=== PATIENT | male | born 1980 | race Caucasian/White ===

== ENCOUNTER 2016-07-06 02:51 | Emergency (ER) | payer BC ==
[2016-07-06 03:11] VITALS: RESP 18; TEMP 97.8
[2016-07-06] MEDS ORDERED: ONDANSETRON 4 MG/2 ML VIAL IVP STA (03:39)
[2016-07-06] MEDS ORDERED: SODIUM CHLORIDE 0.9% 1,000 ML IV STA ×2 (03:39)
[2016-07-06] MEDS ORDERED: MORPHINE SULFATE 4 MG/ML SYRINGE IV STA (03:39)
[2016-07-06] MEDS ORDERED: RX INFO: IV CONTRAST WAS GIVEN 1 EACH MISC MISCELLANE PRN (03:39)
[2016-07-06 04:13] LABS: Basophils % (A) 1 %; CH 30.5; CHCM 34.2; Eosinophils # (A) 0.1 k/uL (0-0.7); Eosinophils % (A) 2 %; HDW 2.55; HGB 13.5 gm/dL (13.0-17.5); Luc # (Auto) 0.16; Luc % (Auto) 3; Lymphocytes # (A) 1.9 k/uL (1.0-4.8); Lymphocytes % (A) 29 %; MCH 30.1 pg (25.0-35.0); MCHC 33.6 g/dL (31.0-37.0); MCV 89.7 fL (80.0-100.0); Mean Platelet Volume 7.6; Monocytes # (A) 0.4 k/uL (0-1.0); Monocytes % (A) 5 %; Neutrophils % (A) 61 %; RBC 4.46 m/uL (4.30-5.90); RDW 13.5 % (11.5-15.5); WBC 6.6 k/uL (3.8-10.6); WBC (Perox) 6.75
[2016-07-06 04:14] LABS: Appearance,Urine Clear (Clear); Bilirubin,Urine Negative (Negative); Glucose,Urine (UA) Negative (Negative); Ketones,Urine Negative (Negative); Leukocyte Esterase,Urine Negative (Negative); Nitrite,Urine Negative (Negative); Protein,Urine Negative (Negative); Specific Gravity,Urine 1.016 (1.001-1.035); UA Billing (MACRO vs. MICRO) CHEM; Urobilinogen,Urine <2.0 mg/dL (<2.0)
--- NOTE | 2016-07-06 04:27 | ED ---
Abdominal Pain HPI - General Chief Complaint: Abdominal Pain Stated Complaint: Flank Pain/Abdominal Pain Time Seen by Provider: 07/06/16 03:25 Source: patient Mode of arrival: ambulatory Limitations: no limitations - History of Present Illness Initial Comments: Presented with the right flank pain pain started about 3 hours ago this is his first of her flank pain pain is in the right flank area it radiates down to the towards the groin but he didn't quite reach the groin now has no history of kidney stones he never had any surgery on his abdomen either he still has his gallbladder and appendix. Denies any fever no chills no nausea no vomiting pain comes in waves then it's there are it's severe 8-9/10) in between he is pain-free. Denies any frequency urgency dysuria no fever no chills no other symptoms - Related Data Home Medications Medication Instructions Recorded Confirmed Atenolol 100 mg PO DAILY 07/06/16 07/06/16 Losartan Potassium 100 mg PO DAILY 07/06/16 07/06/16 Methimazole 10 mg PO DAILY 07/06/16 07/06/16 Previous Rx's Medication Instructions Recorded HYDROmorphone [Dilaudid] 2 mg PO Q6H PRN #15 tab 07/06/16 Allergies Allergy/AdvReac Type Severity Reaction Status Date / Time erythromycin base Allergy Rash/Hives Verified 07/06/16 03:12 latex Allergy Rash/Hives Verified 07/06/16 03:12 Review of Systems ROS Statement: Those systems with pertinent positive or pertinent negative responses have been documented in the HPI. ROS Other: All systems not noted in ROS Statement are negative. Past Medical History Past Medical History: Hyperlipidemia, Hypertension History of Any Multi-Drug Resistant Organisms: None Reported Past Surgical History: No Surgical Hx Reported Past Psychological History: No Psychological Hx Reported Smoking Status: Never smoker Past Alcohol Use History: Occasional Past Drug Use History: None Reported General Exam - General Exam Comments Initial Comments: General: The patient is awake and alert, in order distress Skin: Skin is warm and dry and no rashes or lesions are noted. Eye: Pupils are equal, round and reactive to light, extra-ocular movements are intact; there is normal conjunctiva bilaterally. Ears, nose, mouth and throat: There are moist mucous membranes and no oral lesions. Neck: The neck is supple, there is no tenderness or JVD. Cardiovascular: There is a regular rate and rhythm. No murmur, rub or gallop is appreciated. Respiratory: To auscultation bilateral, no wheezing no rhonchi no distress respiratory ward noticed Gastrointestinal: Tender over the right flank area as well as slightly tender over the right lower quadrant area bowel sounds are positive no guarding no rebounds Back: There is no tenderness to palpation in the midline. There is no obvious deformity. Musculoskeletal: Normal ROM, no tenderness, There is no pedal edema. There is no calf tenderness or swelling. No cords were appreciated. Neurological: CN II-XII intact, Cranial nerves III through XII are intact. There are no obvious motor or sensory deficits. Coordination appears grossly intact. Speech is normal. Psychiatric: Cooperative, appropriate mood & affect, normal judgment. Limitations: no limitations Course Vital Signs 07/06/16 07/06/16 03:08 05:48 Temperature 97.8 F Pulse Rate 73 68 Respiratory 18 18 Rate Blood Pressure 148/74 137/73 O2 Sat by Pulse 98 98 Oximetry , Patient was reassessed at 614, labs were reviewed as well as urinalysis his vitals his CBC compressive metabolic panel are all negative CT of the abdomen shows some sludge in his gallbladder no signs of acute cholecystitis there was 0.2 mm stone seen in the dependent part of the bladder seems like it he just passed and patient's clinical picture, goes along with the Medical Decision Making - Lab Data Result diagrams: 07/06/16 03:55 07/06/16 03:55 Lab Results 07/06/16 07/06/16 07/06/16 Range/Units 03:50 03:55 03:55 WBC 6.6 (3.8-10.6) k/uL RBC 4.46 (4.30-5.90) m/uL Hgb 13.5 (13.0-17.5) gm/dL Hct 40.0 (39.0-53.0) % MCV 89.7 (80.0-100.0) fL MCH 30.1 (25.0-35.0) pg MCHC 33.6 (31.0-37.0) g/dL RDW 13.5 (11.5-15.5) % Plt Count 200 (150-450) k/uL Neutrophils % 61 % Lymphocytes % 29 % Monocytes % 5 % Eosinophils % 2 % Basophils % 1 % Neutrophils # 4.0 (1.3-7.7) k/uL Lymphocytes # 1.9 (1.0-4.8) k/uL Monocytes # 0.4 (0-1.0) k/uL Eosinophils # 0.1 (0-0.7) k/uL Basophils # 0.0 (0-0.2) k/uL Sodium 141 (137-145) mmol/L Potassium 3.8 (3.5-5.1) mmol/L Chloride 105 (98-107) mmol/L Carbon Dioxide 24 (22-30) mmol/L Anion Gap 12 mmol/L BUN 11 (9-20) mg/dL Creatinine 0.90 (0.66-1.25) mg/dL Est GFR (MDRD) Af Amer >60 (>60 ml/min/1.73 sqM) Est GFR (MDRD) Non-Af >60 (>60 ml/min/1.73 sqM) Glucose 125 H (74-99) mg/dL Calcium 9.0 (8.4-10.2) mg/dL Total Bilirubin 0.6 (0.2-1.3) mg/dL AST 24 (17-59) U/L ALT 38 (21-72) U/L Alkaline Phosphatase 95 (38-126) U/L C-Reactive Protein <5.0 (<10.0) mg/L Total Protein 7.1 (6.3-8.2) g/dL Albumin 4.2 (3.5-5.0) g/dL Amylase 55 (30-110) U/L Lipase 165 (23-300) U/L Urine Color Yellow Urine Appearance Clear (Clear) Urine pH 5.0 (5.0-8.0) Ur Specific [place] 1.016 (1.001-1.035) Urine Protein Negative (Negative) Urine Glucose (UA) Negative (Negative) Urine Ketones Negative (Negative) Urine Blood Negative (Negative) Urine Nitrate Negative (Negative) Urine Bilirubin Negative (Negative) Urine Urobilinogen <2.0 (<2.0) mg/dL Ur Leukocyte Esterase Negative (Negative) Disposition Clinical Impression: Nephrolithiasis Disposition: HOME SELF-CARE Condition: Good Instructions: Kidney Stones (ED) Prescriptions: HYDROmorphone [Dilaudid] 2 mg PO Q6H PRN #15 tab PRN Reason: Pain Referrals: Arash Flores MD [Primary Care Provider] - 1-2 days Isaac Dowell MD [STAFF PHYSICIAN] - 1-2 days
[2016-07-06 04:46] LABS: ALT 38 U/L (21-72); AST 24 U/L (17-59); Alkaline Phosphatase 95 U/L (38-126); Amylase 55 U/L (30-110); Anion Gap 12 mmol/L; Blood Urea Nitrogen 11 mg/dL (9-20); C Reactive Protein <5.0 mg/L (<10.0); Carbon Dioxide 24 mmol/L (22-30); Chloride 105 mmol/L (98-107); Glucose 125 mg/dL (74-99); Non-African American GFR(MDRD) >60 (>60 ml/min/1.73 sqM); Potassium 3.8 mmol/L (3.5-5.1); Sodium 141 mmol/L (137-145); Total Bilirubin 0.6 mg/dL (0.2-1.3); Total Protein 7.1 g/dL (6.3-8.2)
[2016-07-06 05:49] VITALS: BP 137/73; PULSE 68
--- NOTE | 2016-07-06 05:55 | CT ---
EXAM: CT Abdomen and Pelvis With Intravenous Contrast. CLINICAL HISTORY: Reason: abdominal pain TECHNIQUE: Axial computed tomography images of the abdomen and pelvis with intravenous contrast. CTDI is 21.6 mGy and DLP is 892 mGy-cm COMPARISON: No relevant prior studies available. FINDINGS: Lower thorax: No acute findings. ABDOMEN: Liver: Unremarkable. Gallbladder and bile ducts: Probable stones or sludge within the gallbladder. No CT evidence of acute cholecystitis. Pancreas: Unremarkable. Spleen: Unremarkable. Adrenals: Unremarkable. Kidneys and ureters: There is a 2 mm calculus seen within the dependent urinary bladder with minimal right-sided hydroureteronephrosis. Findings likely represent a recently passed ureteral calculus. There are additional nonobstructing calculi seen within both kidneys. Stomach and bowel: Unremarkable. Appendix: The appendix is unremarkable. PELVIS: Bladder: Unremarkable. Reproductive: Unremarkable as visualized. ABDOMEN and PELVIS: Intraperitoneal space: Unremarkable. Bones/joints: No acute fracture. No dislocation. Soft tissues: Unremarkable. Vasculature: Unremarkable. Lymph nodes: Unremarkable. IMPRESSION: 1. Probable stones or sludge within the gallbladder. No CT evidence of acute cholecystitis. 2. There is a 2 mm calculus seen within the dependent urinary bladder with minimal right-sided hydroureteronephrosis. Findings likely represent a recently passed ureteral calculus. There are additional nonobstructing calculi seen within both kidneys.
== END 2016-07-06 06:23 | disposition home or self-care (01) ==
LOC: EC 02:51
DX: N20.0 Calculus of kidney (principal); I10 Essential (primary) hypertension; Z79.899 Other long term (current) drug therapy; Z88.1 Allergy status to other antibiotic agents; Z91.040 Latex allergy status
CPT/HCPCS: 36415; 80053; 82150; 83690; 85025; 86140; 81003; 74177; 99284; 96374; 96375; 96361; J2270; J2405; Q9967

== ENCOUNTER → 2016-12-22 | Outpatient (CLI) | payer BC ==
--- NOTE | 2016-12-22 17:47 | US ---
EXAMINATION TYPE: US thyroid st tissue head/neck DATE OF EXAM: 12/22/2016 COMPARISON: 09/25/2015 CLINICAL HISTORY: 36-year-old male E04.1 Thyroid nodule. F/U Nodules TECHNIQUE: Multiple sonographic images of the thyroid gland are obtained. FINDINGS: GLAND SIZE: Right Lobe: 6.5 x 2.2 x 3.1 cm Overall Parenchyma: Slightly heterogeneous Left Lobe: 6.3 x 1.8 x 2.5 cm Overall Parenchyma: Slightly heterogeneous Isthmus Thickness: 0.5 cm NODULES RIGHT: # of nodules measured on right: 2 1. 0.6 X 0.4 x 0.6 cm hypoechoic solid nodule at the mid pole with well-defined margins; This nodul e is wider than tall and shows intranodular vascularity. Prior size: 0.5 x 0.4 x 0.5 cm 2. 0.5 X 0.4 x 0.5 cm hypoechoic mixed nodule at the mid pole with well-defined margins; This nodule is wider than tall and shows no intranodular vascularity. Prior size: Not visualized on prior LEFT: # of nodules measured on left: 1 1. 1.5 X 1.3 x 1.4 cm isoechoic solid nodule at the lower pole with well-defined margins;. This no dule is wider than tall and shows intranodular vascularity. Prior size: 1.6 x 1.2 x 1.4 cm Bilateral neck scanned, no evidence of lymphadenopathy. BOOM TENDER NOTES: Stable nodules with new small, sub-centimeter nodule on right IMPRESSION: 1. Thyromegaly. 2. A couple subcentimeter nodules on the right, a 5 mm nodule being new in the midpole. 3. Overall stable solitary 1.5 cm nodule on the left.
== END | disposition home or self-care (01) ==
LOC: RADUSWWP 16:14
PROVIDERS: ATTEND Family Medicine
DX: E04.2 Nontoxic multinodular goiter (principal)
CPT/HCPCS: 76536

== ENCOUNTER 2018-04-26 18:10 | Observation (INO) | payer BC ==
[2018-04-26 18:57] LABS: Basophils % (A) 0 %; Eosinophils # (A) 0.1 k/uL (0-0.7); Eosinophils % (A) 1 %; HCT 43.1 % (39.0-53.0); HGB 13.5 gm/dL (13.0-17.5); Lymphocytes # (A) 2.4 k/uL (1.0-4.8); Lymphocytes % (A) 27 %; MCH 28.1 pg (25.0-35.0); MCHC 31.3 g/dL (31.0-37.0); MCV 89.8 fL (80.0-100.0); Mean Platelet Volume 6.9; Monocytes # (A) 0.4 k/uL (0-1.0); Monocytes % (A) 5 %; Neutrophils # (A) 5.5 k/uL (1.3-7.7); Neutrophils % (A) 63 %; Platelet Count 258 k/uL (150-450); RDW 13.5 % (11.5-15.5); WBC 8.8 k/uL (3.8-10.6)
[2018-04-26 19:04] LABS: ALT 37 U/L (21-72); AST 25 U/L (17-59); Alkaline Phosphatase 104 U/L (38-126); Anion Gap 11 mmol/L; Blood Urea Nitrogen 11 mg/dL (9-20); Calcium 9.9 mg/dL (8.4-10.2); Carbon Dioxide 26 mmol/L (22-30); Chloride 104 mmol/L (98-107); Creatine Kinase 60 U/L (55-170); Glucose 103 mg/dL (74-99); Magnesium 2.1 mg/dL (1.6-2.3); Potassium 4.3 mmol/L (3.5-5.1); Sodium 141 mmol/L (137-145); Total Bilirubin 0.9 mg/dL (0.2-1.3); Total Protein 8.4 g/dL (6.3-8.2)
[2018-04-26 19:05] LABS: INR 0.9 (<1.2); Partial Thromboplastin Time 26.9 sec (22.0-30.0)
[2018-04-26 19:17] LABS: Creatine Kinase MB 0.3 ng/mL (0.0-2.4); Troponin I <0.012 ng/mL (0.000-0.034)
[2018-04-26] MEDS ORDERED: ASPIRIN 81 MG PO STA (20:13)
--- NOTE | 2018-04-26 20:15 | ED ---
General Adult HPI - General Chief complaint: Chest Pain Stated complaint: chest pain Time Seen by Provider: 04/26/18 19:44 Source: patient, RN notes reviewed Mode of arrival: ambulatory Limitations: no limitations - History of Present Illness Initial comments: Patient is a pleasant 37-year-old male presenting to the emergency Department with chest discomfort. Onset was last night. Discomfort is mild. Discomfort has been waxing and waning. Discomfort feels like tightness with some rotation towards left arm. There may be some minimal associated dyspnea. No nausea. No diaphoresis. Blood pressure has been monitored by his primary care physician over the past few weeks with numbers as high as 150/90. Discomfort is near resolved at this point. - Related Data Home Medications Medication Instructions Recorded Confirmed Atenolol 100 mg PO DAILY 07/06/16 04/26/18 Losartan Potassium 100 mg PO DAILY 07/06/16 04/26/18 Methimazole 10 mg PO DAILY 07/06/16 04/26/18 Artificial Tears-Hypromellose 1 drop BOTH EYES DAILY PRN 04/26/18 04/26/18 [Artificial Tear Drops] Aspirin [[place] Aspirin EC] 81 mg PO DAILY 04/26/18 04/26/18 Pedi Multivit No.25/Folic Acid 300 mcg PO DAILY 04/26/18 04/26/18 [Flintstones Multivit Chew Tab] amLODIPine BESYLATE [Norvasc] 2.5 mg PO DAILY 04/26/18 04/26/18 Allergies Allergy/AdvReac Type Severity Reaction Status Date / Time erythromycin base Allergy Rash/Hives Verified 04/26/18 20:08 hydrochlorothiazide Allergy Unknown Verified 04/26/18 20:08 latex Allergy Rash/Hives Verified 04/26/18 20:08 Review of Systems ROS Statement: Those systems with pertinent positive or pertinent negative responses have been documented in the HPI. ROS Other: All systems not noted in ROS Statement are negative. Constitutional: Denies: fever Eyes: Denies: eye pain ENT: Denies: ear pain Respiratory: Reports: as per HPI. Denies: cough Cardiovascular: Reports: as per HPI, chest pain Endocrine: Denies: fatigue Gastrointestinal: Denies: abdominal pain Genitourinary: Denies: dysuria Musculoskeletal: Denies: back pain Skin: Denies: rash Neurological: Denies: weakness Past Medical History Past Medical History: Hyperlipidemia, Hypertension History of Any Multi-Drug Resistant Organisms: None Reported Past Surgical History: No Surgical Hx Reported Past Psychological History: No Psychological Hx Reported Smoking Status: Never smoker Past Alcohol Use History: Occasional Past Drug Use History: None Reported General Exam Limitations: no limitations General appearance: alert, in no apparent distress Head exam: Present: atraumatic Eye exam: Present: normal appearance, PERRL ENT exam: Present: normal oropharynx Neck exam: Present: normal inspection Respiratory exam: Present: normal lung sounds bilaterally. Absent: chest wall tenderness Cardiovascular Exam: Present: regular rate, normal rhythm Expanded Peripheral pulses: 2+: Radial (R), Radial (L), Posterior Tibialis (R), Posterior Tibialis (L) GI/Abdominal exam: Present: soft. Absent: tenderness Extremities exam: Present: normal inspection. Absent: pedal edema, calf tenderness Neurological exam: Present: alert Psychiatric exam: Present: normal affect, normal mood Skin exam: Present: normal color Course Vital Signs 04/26/18 18:31 Temperature 98.2 F Pulse Rate 67 Respiratory 16 Rate Blood Pressure 154/86 O2 Sat by Pulse 99 Oximetry EKG Findings - EKG Comments: EKG Findings:: Normal sinus rhythm 68. OR 138. QRS 86. QT 402. QTC 427. Normal axis. Normal QRS. No acute ST change. Medical Decision Making - Medical Decision Making Patient reevaluated and resting comfortably in bed. Patient and family updated on results and plan. Case was discussed in detail with Dr. Man, covering for Dr. Flores, who will admit. - Lab Data Result diagrams: 04/26/18 18:26 04/26/18 18:26 Lab Results 04/26/18 04/26/18 04/26/18 Range/Units 18:26 18:26 18:26 WBC 8.8 (3.8-10.6) k/uL RBC 4.80 (4.30-5.90) m/uL Hgb 13.5 (13.0-17.5) gm/dL Hct 43.1 (39.0-53.0) % MCV 89.8 (80.0-100.0) fL MCH 28.1 (25.0-35.0) pg MCHC 31.3 (31.0-37.0) g/dL RDW 13.5 (11.5-15.5) % Plt Count 258 (150-450) k/uL Neutrophils % 63 % Lymphocytes % 27 % Monocytes % 5 % Eosinophils % 1 % Basophils % 0 % Neutrophils # 5.5 (1.3-7.7) k/uL Lymphocytes # 2.4 (1.0-4.8) k/uL Monocytes # 0.4 (0-1.0) k/uL Eosinophils # 0.1 (0-0.7) k/uL Basophils # 0.0 (0-0.2) k/uL PT (9.0-12.0) sec INR (<1.2) APTT (22.0-30.0) sec Sodium 141 (137-145) mmol/L Potassium 4.3 (3.5-5.1) mmol/L Chloride 104 (98-107) mmol/L Carbon Dioxide 26 (22-30) mmol/L Anion Gap 11 mmol/L BUN 11 (9-20) mg/dL Creatinine 0.89 (0.66-1.25) mg/dL Est GFR (CKD-EPI)AfAm >90 (>60 ml/min/1.73 sqM) Est GFR (CKD-EPI)NonAf >90 (>60 ml/min/1.73 sqM) Glucose 103 H (74-99) mg/dL Calcium 9.9 (8.4-10.2) mg/dL Magnesium 2.1 (1.6-2.3) mg/dL Total Bilirubin 0.9 (0.2-1.3) mg/dL AST 25 (17-59) U/L ALT 37 (21-72) U/L Alkaline Phosphatase 104 (38-126) U/L Total Creatine Kinase 60 (55-170) U/L CK-MB (CK-2) 0.3 (0.0-2.4) ng/mL CK-MB (CK-2) Rel Index 0.5 Troponin I <0.012 (0.000-0.034) ng/mL Total Protein 8.4 H (6.3-8.2) g/dL Albumin 5.0 (3.5-5.0) g/dL 04/26/18 Range/Units 18:26 WBC (3.8-10.6) k/uL RBC (4.30-5.90) m/uL Hgb (13.0-17.5) gm/dL Hct (39.0-53.0) % MCV (80.0-100.0) fL MCH (25.0-35.0) pg MCHC (31.0-37.0) g/dL RDW (11.5-15.5) % Plt Count (150-450) k/uL Neutrophils % % Lymphocytes % % Monocytes % % Eosinophils % % Basophils % % Neutrophils # (1.3-7.7) k/uL Lymphocytes # (1.0-4.8) k/uL Monocytes # (0-1.0) k/uL Eosinophils # (0-0.7) k/uL Basophils # (0-0.2) k/uL PT 10.0 (9.0-12.0) sec INR 0.9 (<1.2) APTT 26.9 (22.0-30.0) sec Sodium (137-145) mmol/L Potassium (3.5-5.1) mmol/L Chloride (98-107) mmol/L Carbon Dioxide (22-30) mmol/L Anion Gap mmol/L BUN (9-20) mg/dL Creatinine (0.66-1.25) mg/dL Est GFR (CKD-EPI)AfAm (>60 ml/min/1.73 sqM) Est GFR (CKD-EPI)NonAf (>60 ml/min/1.73 sqM) Glucose (74-99) mg/dL Calcium (8.4-10.2) mg/dL Magnesium (1.6-2.3) mg/dL Total Bilirubin (0.2-1.3) mg/dL AST (17-59) U/L ALT (21-72) U/L Alkaline Phosphatase (38-126) U/L Total Creatine Kinase (55-170) U/L CK-MB (CK-2) (0.0-2.4) ng/mL CK-MB (CK-2) Rel Index Troponin I (0.000-0.034) ng/mL Total Protein (6.3-8.2) g/dL Albumin (3.5-5.0) g/dL - Radiology Data Interpreted by me: Chest x-ray shows no acute process Disposition Clinical Impression: Chest pain Disposition: ADMITTED IP TO THIS [facility] Is patient prescribed a controlled substance at d/c from ED?: No Referrals: Arash Flores MD [Primary Care Provider] - 1-2 days Decision Time: 20:57
[2018-04-26] MEDS ORDERED: NITROGLYCERIN SL TABS 0.4 MG TAB SUBLINGUAL PRN (20:57)
--- NOTE | 2018-04-26 20:57 | XR ---
EXAMINATION TYPE: XR chest 2V DATE OF EXAM: 04/26/2018 COMPARISON: 01/31/2013 HISTORY: Chest pain TECHNIQUE: Frontal and lateral views of the chest are obtained. FINDINGS: Heart and mediastinum are normal. Lungs are clear. Diaphragm is normal. Bony thorax appear s normal. Pulmonary vascularity is normal. IMPRESSION: Normal chest. No change.
[2018-04-26 22:15] VITALS: BMI 29.0
[2018-04-26] MEDS: NITROGLYCERIN OINT 1 INCH/GM PACKET TOPICAL SCH (22:37)
[2018-04-27 00:51] LABS: Creatine Kinase 53 U/L (55-170)
[2018-04-27 01:05] LABS: Creatine Kinase MB <0.2 ng/mL (0.0-2.4); Troponin I <0.012 ng/mL (0.000-0.034)
[2018-04-27] MEDS: NITROGLYCERIN OINT 1 INCH/GM PACKET TOPICAL SCH (05:10)
[2018-04-27 06:42] LABS: Cholesterol 168 mg/dL (<200); HDL Cholesterol 38 mg/dL (40-60); LDL Cholesterol,Calculated 105 mg/dL (0-99); Triglycerides 124 mg/dL (<150)
[2018-04-27 07:13] LABS: Creatine Kinase 45 U/L (55-170)
[2018-04-27 07:25] LABS: Creatine Kinase MB <0.2 ng/mL (0.0-2.4); Troponin I <0.012 ng/mL (0.000-0.034)
[2018-04-27 08:36] VITALS: RESP 18
[2018-04-27] MEDS ORDERED: ASPIRIN 325 MG TAB PO SCH (09:00)
--- NOTE | 2018-04-27 09:13 | US ---
EXAMINATION TYPE: US gallbladder DATE OF EXAM: 04/27/2018 COMPARISON: CT from 2017 CLINICAL HISTORY: right upper back pain. EXAM MEASUREMENTS: Liver Length: 13.3 cm Gallbladder Wall: 0.2 cm CBD: 0.4 cm Right Kidney: 10.8 x 4.3 x 4.7 cm Pancreas: visualized portions wnl Liver: wnl Gallbladder: No stones seen Evidence for sonographic Arana's sign: No CBD: wnl Right Kidney: No hydronephrosis or masses seen IMPRESSION: No distinct abnormality seen.
--- NOTE | 2018-04-27 10:39 | P.CRDCN ---
History of Present Illness History of present illness: This is a pleasant 37-year-old male past medical history significant for hypertension, dyslipidemia, hypothroidism and kidney stones in the past. He denies history of coronary artery disease. We have been asked to see him in consultation for chest pain. He states he has been following closely with his primary care physician recently regarding his blood pressures. He was recently started on amlodipine 2.5 mg daily last week due to uncontrolled blood pressures on losartan 100 mg daily and atenolol 25 mg daily. Since starting that third medication he has noticed his blood pressure running lower in the 105 -110 systolic range. Yesterday he started feeling a pain in the right scapular region and in the mid-sternal region as well. The pain was intermittent in nature with no specific aggravating or alleviating factors. He denies any specific shortness of breath but felt like he couldn't take in a deep breath. He denies dizziness, palpitations or nausea/vomiting. He checked his blood pressure at home and it was elevated. He states he checked it 3 separate times and each time the pressure went up, highest being 200 systolic. Upon arrival to ED blood pressure was 154/86. He denies any further symptoms of chest discomfort since arrival to the hospital. EKG reveals sinus mechanism with no acute ST or T wave abnormalities noted. Chest x-ray is negative for an acute cardiopulmonary process. Laboratory data reviewed, hemoglobin 15.5, platelets 258, WBC 8.8, sodium 141, potassium 4.3, magnesium 2.1, creatinine 0.89, cardiac enzymes negative 3, LDL 105 and HDL 38. He states he underwent stress testing approximately 8 years ago which was unremarkable per the patient. At the time of my exam: CONSTITUTIONAL: Denies fever. Denies chills. EYES: Denies blurred vision. Denies vision changes. Denies eye pain. EARS, NOSE, MOUTH & THROAT: Denies headache. Denies sore throat. Denies ear pain. CARDIOVASCULAR: Denies chest pain. Denies shortness of breath. Denies orthopnea. Denies PND. Denies palpitations. RESPIRATORY: Denies cough. GASTROINTESTINAL: Denies abdominal pain. Denies diarrhea. Denies constipation. Denies nausea. Denies vomiting. MUSCULOSKELETAL: Denies myalgias. INTEGUMENTARY: Denies pruitis. Denies rash. NEUROLOGIC: Denies numbness. Denies tingling. Denies weakness. PSYCHIATRIC: Denies anxiety. Denies depression. ENDOCRINE: Denies fatigue. Denies weight change. Denies polydipsia. Denies polyurina. GENITOURINARY: Denies burning, hematuria or urgency with micturation. HEMATOLOGIC: Denies history of anemia. Denies bleeding. Blood pressure 119/67 heart rate 70 afebrile maintaining oxygen saturation on room air GENERAL: This is a 37-year-old male in no apparent distress at the time of my examination. HEENT: Head is atraumatic, normocephalic. Pupils are equal, round. Sclerae anicteric. Conjunctivae are clear. Mucous membranes of the mouth are moist. Neck is supple. There is no jugular venous distention. No carotid bruit is heard. LUNGS: Clear to auscultation no wheezes, rales or rhonchi. No chest wall tenderness is noted on palpation or with deep breathing. HEART: Regular rate and rhythm without murmurs, rubs or gallops. S1 and S2 heard. ABDOMEN: Soft, nontender. Bowel sounds are heard. No organomegaly noted. EXTREMITIES: No evidence of peripheral edema and no calf tenderness noted. VASCULAR: Radial and dorsalis pedis pulses palpated, no evidence of clubbing. NEUROLOGIC: Patient is awake, alert and oriented x3. ASSESSMENT Chest pain, atypical Hypertension Dyslipidemia Hypothyroidism PLAN Change atenolol to carvedilol 25 mg daily. Resume amlodipine and losartan at home doses. Obtain 2-D echocardiogram and Doppler study to assess cardiac structure and function. Perform stress echocardiogram to assess for stress induced cardiac ischemia. If stress test is normal he is stable from a cardiac perspective. Follow up with Dr. Askew in 2-3 weeks. Nurse Practitioner note has been reviewed, I agree with a documented findings and plan of care. Patient was seen and examined. Past Medical History Past Medical History: Hyperlipidemia, Hypertension, Thyroid Disorder Additional Past Medical History / Comment(s): hyperthyroid, kidney stones History of Any Multi-Drug Resistant Organisms: None Reported Past Surgical History: No Surgical Hx Reported Past Psychological History: No Psychological Hx Reported Smoking Status: Never smoker Past Alcohol Use History: Occasional Past Drug Use History: None Reported - Past Family History Father Family Medical History: Hypertension Mother Family Medical History: Hypertension Medications and Allergies Home Medications Medication Instructions Recorded Confirmed Type Atenolol 100 mg PO DAILY 07/06/16 04/26/18 History Losartan Potassium 100 mg PO DAILY 07/06/16 04/26/18 History Methimazole 10 mg PO DAILY 07/06/16 04/26/18 History Artificial Tears-Hypromellose 1 drop BOTH EYES DAILY PRN 04/26/18 04/26/18 History [Artificial Tear Drops] Aspirin [[place] Aspirin EC] 81 mg PO DAILY 04/26/18 04/26/18 History Pedi Multivit No.25/Folic Acid 300 mcg PO DAILY 04/26/18 04/26/18 History [[place] Multivit Chew Tab] amLODIPine BESYLATE [Norvasc] 2.5 mg PO DAILY 04/26/18 04/26/18 History Allergies Allergy/AdvReac Type Severity Reaction Status Date / Time erythromycin base Allergy Rash/Hives Verified 04/26/18 20:08 hydrochlorothiazide Allergy Unknown Verified 04/26/18 20:08 latex Allergy Rash/Hives Verified 04/26/18 20:08 Physical Exam Vitals: Vital Signs Temp Pulse Pulse Resp BP BP Pulse Ox 04/27/18 08:00 97.7 F 70 18 119/67 98 04/27/18 03:39 16 04/27/18 03:37 98.3 F 76 16 115/65 99 04/27/18 00:00 16 04/26/18 23:29 98.2 F 56 L 16 130/75 97 04/26/18 22:00 16 04/26/18 21:49 97.9 F 63 16 128/79 97 04/26/18 21:30 70 16 133/81 96 04/26/18 20:58 68 19 132/77 96 04/26/18 18:31 98.2 F 67 16 154/86 99 Intake and Output 04/26/18 04/27/18 04/27/18 22:59 06:59 14:59 Other: Voiding Method Toilet Toilet Toilet # Voids 2 Weight 89.358 kg Results 04/26/18 18:26 04/26/18 18:26 Cardiac Enzymes 04/26/18 04/26/18 04/27/18 Range/Units 18:26 18:26 00:10 AST 25 (17-59) U/L CK-MB (CK-2) 0.3 <0.2 (0.0-2.4) ng/mL Troponin I <0.012 <0.012 (0.000-0.034) ng/mL 04/27/18 Range/Units 06:09 AST (17-59) U/L CK-MB (CK-2) <0.2 (0.0-2.4) ng/mL Troponin I <0.012 (0.000-0.034) ng/mL Coagulation 04/26/18 Range/Units 18:26 PT 10.0 (9.0-12.0) sec APTT 26.9 (22.0-30.0) sec Lipids 04/27/18 Range/Units 06:09 Triglycerides 124 (<150) mg/dL Cholesterol 168 (<200) mg/dL HDL Cholesterol 38 L (40-60) mg/dL CBC 04/26/18 Range/Units 18:26 WBC 8.8 (3.8-10.6) k/uL RBC 4.80 (4.30-5.90) m/uL Hgb 13.5 (13.0-17.5) gm/dL Hct 43.1 (39.0-53.0) % Plt Count 258 (150-450) k/uL Comprehensive Metabolic Panel 04/26/18 Range/Units 18:26 Sodium 141 (137-145) mmol/L Potassium 4.3 (3.5-5.1) mmol/L Chloride 104 (98-107) mmol/L Carbon Dioxide 26 (22-30) mmol/L BUN 11 (9-20) mg/dL Creatinine 0.89 (0.66-1.25) mg/dL Glucose 103 H (74-99) mg/dL Calcium 9.9 (8.4-10.2) mg/dL AST 25 (17-59) U/L ALT 37 (21-72) U/L Alkaline Phosphatase 104 (38-126) U/L Total Protein 8.4 H (6.3-8.2) g/dL Albumin 5.0 (3.5-5.0) g/dL Current Medications Generic Name Dose Route Start Last Admin Trade Name Freq PRN Reason Stop Dose Admin Amlodipine Besylate 2.5 mg 04/28/18 09:00 Norvasc PO DAILY [facility] Aspirin 81 mg 04/28/18 09:00 Aspirin PO DAILY [facility] Carvedilol 25 mg 04/28/18 07:30 Coreg PO AC-BRKFST [facility]TI[facility] Losartan Potassium 100 mg 04/28/18 09:00 Cozaar PO DAILY [facility] Nitroglycerin 0.4 mg 04/26/18 20:57 Nitrostat SUBLINGUAL Q5M PRN Chest Pain Intake and Output 04/26/18 04/27/18 04/27/18 22:59 06:59 14:59 Other: Voiding Method Toilet Toilet Toilet # Voids 2 Weight 89.358 kg 04/26/18 18:26 04/26/18 18:26
[2018-04-27] MEDS ORDERED: CARVEDILOL 12.5 MG TAB PO STA (12:11)
[2018-04-27] MEDS ORDERED: LOSARTAN 50 MG TAB PO STA (12:11)
[2018-04-27] MEDS ORDERED: amLODIPine 2.5 MG TAB PO STA (12:11)
--- NOTE | 2018-04-27 13:23 | ECHOF ---
Referral Reason:cp MEASUREMENTS -------- HEIGHT: 175.3 cm WEIGHT: 89.4 kg BP: 119/67 RVIDd: 3.5 cm (< 3.3) IVSd: 1.0 cm (0.6 - 1.1) LVIDd: 4.6 cm (3.9 - 5.3) LVPWd: 1.1 cm (0.6 - 1.1) IVSs: 1.6 cm LVIDs: 3.1 cm LVPWs: 1.7 cm LA Diam: 3.5 cm (2.7 - 3.8) LAESV Index (A-L): 23.78 ml/m Ao Diam: 3.2 cm (2.0 - 3.7) AV Cusp: 2.5 cm (1.5 - 2.6) MV EXCURSION: 21.562 mm (> 18.000) MV EF SLOPE: 120 mm/s (70 - 150) EPSS: 0.2 cm MV E Rakesh: 1.21 m/s MV DecT: 177 ms MV A Rakesh: 0.64 m/s MV E/A Ratio: 1.87 RAP: 5.00 mmHg RVSP: 19.52 mmHg FINDINGS -------- Sinus rhythm. This was a technically good study. The left ventricular size is normal. There is borderline concentric left ventricular hypertrophy. Overall left ventricular systolic function is normal with, an EF between 60 - 65 %. The right ventricle is mildly enlarged. Normal LA size by volume 22+/-6 ml/m2. The right atrium is normal in size. The aortic valve is trileaflet and appears structurally normal. There is trace to mild mitral regurgitation. Mild tricuspid regurgitation present. Right ventricular systolic pressure is normal at < 35 mmHg. Trace/mild (physiologic) pulmonic regurgitation. The aortic root size is normal. Normal inferior vena cava with normal inspiratory collapse consistent with estimated right atrial pre ssure of 5 mmHg. There is no pericardial effusion. CONCLUSIONS -------- 1. Sinus rhythm. 2. This was a technically good study. 3. The left ventricular size is normal. 4. There is borderline concentric left ventricular hypertrophy. 5. Overall left ventricular systolic function is normal with, an EF between 60 - 65 %. 6. The right ventricle is mildly enlarged. 7. Normal LA size by volume 22+/-6 ml/m2. 8. The right atrium is normal in size. 9. The aortic valve is trileaflet and appears structurally normal. 10. There is trace to mild mitral regurgitation. 11. Mild tricuspid regurgitation present. 12. Right ventricular systolic pressure is normal at < 35 mmHg. 13. Trace/mild (physiologic) pulmonic regurgitation. 14. The aortic root size is normal. 15. Normal inferior vena cava with normal inspiratory collapse consistent with estimated right atrial pressure of 5 mmHg. 16. There is no pericardial effusion. [employer]TER: Sravani Ford RDCS
[2018-04-27] MEDS ORDERED: ARTIFICIAL TEARS-HYPROMELLOSE DROPS 15 ML BTL BOTH EYES PRN (13:33)
[2018-04-27] MEDS ORDERED: METHIMAZOLE 5 MG TAB PO SCH (13:45)
[2018-04-27 15:47] VITALS: BP 118/79; PULSE 73; TEMP 97.6
--- NOTE | 2018-04-28 00:25 | HP ---
HISTORY AND PHYSICAL This is both History and Physical and Discharge Summary. DATE OF ADMISSION: 04/26/2018. DATE OF DISCHARGE: 04/27/2018. DATE OF SERVICE: 04/27/2018. PRESENTING COMPLAINT: Chest tightness. HISTORY OF PRESENTING COMPLAINT: A very pleasant 37-year-old patient of Dr. Flores. Chronic stable medical conditions include hyperlipidemia, hypertension, hypothyroidism, and kidney stones. The patient is being followed for her hyperthyroidism by Dr. Flores's nurse practitioner. According to the patient, the levels have been well controlled. The patient now presents with about 2 weeks of episodes of what he describes is tightness and anxious feeling in the chest. Often times he will wake up from sleep and feel his heart a bit racing. There is no perspiration. There is no fevers or chills. The patient otherwise does not have any anxious disposition. Denies any alcohol or smoking. The patient does not take any energy boosting drugs or excessive caffeine. Because of the symptoms going on, patient decided to come in to get further checked up. No wheezing. No fever. No chills. REVIEW OF SYSTEMS: CONSTITUTIONAL: None. HEENT: None. RESPIRATORY: As above. CARDIOVASCULAR: As above. GASTROINTESTINAL: None. GENITOURINARY: None. MUSCULOSKELETAL: None. DERMATOLOGICAL: None. HEMATOLOGIC: None. LYMPHATICS: None. PSYCHIATRY: None. NEUROLOGICAL none. PAST MEDICAL HISTORY: Hypertension, hyperlipidemia, hyperthyroidism, kidney stones. PAST SURGICAL HISTORY: None. SOCIAL HISTORY: Does not smoke. Alcohol occasionally. 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 . FAMILY HISTORY: Hypertension. HOME MEDICATIONS: 1. Norvasc 2.5 mg a day. 2. Flintstones multivitamin 300 mcg daily. 3. Methimazole 10 mg p.o. daily. 4. Losartan 100 mg a day. 5. Atenolol 100 mg a day. 6. Aspirin 81 mg a day. 7. Artificial Tears 1 drop to both eyes p.r.n. ALLERGIES: ERYTHROMYCIN, HYDROCHLOROTHIAZIDE, LATEX. PHYSICAL EXAMINATION: VITAL SIGNS: Vital signs on presentation, temperature 98.2, pulse 57, respirations 16, blood pressure 122/86, pulse ox 99 percent room air. GENERAL: Average built, sitting up, comfortable. EYES: Pupils equal. Conjunctivae normal. HEENT: External nose and ears normal. Oral cavity normal. NECK: JVD not raised. Mass not palpable. Respiratory effort normal. LUNGS: Fair air entry. CARDIOVASCULAR: First and second sounds normal. No edema. ABDOMEN: Soft, nontender. Liver and spleen not palpable. LYMPHATICS: No lymph nodes palpable in the neck or axillae. PSYCHIATRY: Alert and oriented x3. Mood and affect normal. NEUROLOGIC: Pupils equal. Cranial nerves grossly intact. Power and sensation grossly intact. INVESTIGATIONS: White count 8.8, hemoglobin 13.5, platelets 215,000, potassium 4.3. BUN and creatinine normal. LDL 105. Troponin x3 negative. The EKG tracing was personally reviewed by me, showed normal sinus rhythm. Chest x-ray film personally reviewed by me. The patient also had a gallbladder ultrasound, unremarkable. A 2D echocardiogram shows preserved LV function. The patient's stress echocardiogram was reported to be negative per the nurse and also cleared. ASSESSMENT: 1. This is a patient, presented with episodes of chest tightness, anxious, waking up from sleep with heart racing heart racing. Patient tells me his thyroid function has been corrected. Did tell him to get this checked again in Dr. Flores's office. Given that the patient's stress test is negative, which ischemia was in the differential given his risk factors, the patient may be having episodes of arrhythmia and patient may need a Holter monitor as an outpatient. 2. Essential hypertension. 3. Hyperlipidemia. 4. Hypothyroidism. PLAN: Patient's home medications have been resumed. Patient's atenolol has been changed into Coreg. The patient has been discharged home by Cardiology and he will follow up with both Cardiology and Dr. Flores. Care was discussed in detail with the patient and . Questions were answered. MMODL / IJN: [id number] /
[2018-04-28] MEDS ORDERED: CARVEDILOL 12.5 MG TAB PO SCH (07:30)
[2018-04-28] MEDS ORDERED: ASPIRIN 81 MG PO SCH (09:00)
[2018-04-28] MEDS ORDERED: amLODIPine 2.5 MG TAB PO SCH (09:00)
[2018-04-28] MEDS ORDERED: LOSARTAN 50 MG TAB PO SCH (09:00)
--- NOTE | 2018-04-28 11:38 | ECHOS ---
STRESS ECHOCARDIOGRAM DATE OF SERVICE: 04/27/2018 INDICATIONS: Chest pain. MEDICATIONS: BASELINE HEART RATE: 82 BASELINE BLOOD PRESSURE: 125/55 MAXIMUM HEART RATE: 173 MAXIMUM BLOOD PRESSURE: 172/54 85% MPHR: 156 100% MPHR: 184 METS: 8.5 MAXIMUM STAGE REACHED: III TOTAL EXERCISE TIME: 7 minutes CLINICAL INFORMATION: The patient was exercised for a total period of 7 minutes. The peak heart rate of 173 was achieved. Maximum blood pressure 172/54 mmHg was noted. The patient did not complain of any chest pain during the test. Resting EKG shows normal sinus rhythm with normal [place] interval and QRS duration and normal ST-T waves. No ST-segment depression suggestive of ischemia is noted. The baseline echocardiographic images reveals normal left ventricular chamber size with normal left ventricular systolic function. In the immediate postexercise periods, normal increase in the wall thickness and contractility is noted. FINAL IMPRESSION: 1. This stress echocardiographic study is negative for stress-induced ischemia. 2. EKG portion of the stress test is not suggestive of ischemia. 3. The patient's exercise tolerance is average. MMODL / IJN: [id number] /
== END 2018-04-27 18:41 | disposition home or self-care (01) ==
LOC: EC 18:10 → 1SOBS 20:58
PROVIDERS: ADMIT Hospitalist; ATTEND Hospitalist
DX: R07.89 Other chest pain (principal); R00.0 Tachycardia, unspecified; F41.9 Anxiety disorder, unspecified; I10 Essential (primary) hypertension; E78.5 Hyperlipidemia, unspecified; E03.9 Hypothyroidism, unspecified; Z79.899 Other long term (current) drug therapy; Z79.82 Long term (current) use of aspirin; Z91.040 Latex allergy status; Z88.1 Allergy status to other antibiotic agents; Z88.8 Allergy status to other drugs, medicaments and biological substances; Z82.49 Family history of ischemic heart disease and other diseases of the circulatory system
CPT/HCPCS: 99285; 36415; 93005; 93306; 93351; 80061; 80053; 82550 ×2; 82553 ×2; 83735; 84484 ×2; 85025; 85610; 85730; 71046; 76705; G0378 ×2

== ENCOUNTER 2018-04-30 21:47 | Emergency (ER) | payer BC ==
--- NOTE | 2018-04-30 23:05 | ED ---
General Adult HPI - General Chief complaint: Recheck/Abnormal Lab/Rx Stated complaint: Hypertensive Time Seen by Provider: 04/30/18 22:33 Source: patient Mode of arrival: ambulatory Limitations: no limitations - History of Present Illness Initial comments: Patient is a 37-year-old male presenting for hypertension. He states that he was seen here a couple days ago and started on multiple different medications and they also did a stress test at that time and it was noted to be negative. He states that he checked his blood pressure at home it was 151/103 and decided to come in. He denies any rachna chest pain but he admits to some palpitations as well as some chest discomfort in the left shoulder. - Related Data Home Medications Medication Instructions Recorded Confirmed Losartan Potassium 100 mg PO DAILY 07/06/16 04/30/18 Methimazole 10 mg PO DAILY 07/06/16 04/30/18 Artificial Tears-Hypromellose 1 drop BOTH EYES DAILY PRN 04/26/18 04/30/18 [Artificial Tear Drops] Aspirin [Abernathy Aspirin EC] 81 mg PO DAILY 04/26/18 04/30/18 amLODIPine BESYLATE [Norvasc] 2.5 mg PO DAILY 04/26/18 04/30/18 Previous Rx's Medication Instructions Recorded Carvedilol [Coreg] 25 mg PO DAILY #30 tablet 04/27/18 Allergies Allergy/AdvReac Type Severity Reaction Status Date / Time erythromycin base Allergy Rash/Hives Verified 04/30/18 21:59 hydrochlorothiazide Allergy Unknown Verified 04/30/18 21:59 latex Allergy Rash/Hives Verified 04/30/18 21:59 Review of Systems ROS Statement: Those systems with pertinent positive or pertinent negative responses have been documented in the HPI. Constitutional: Negative for chills, fatigue and fever. HENT: Negative for congestion. Respiratory: Positive for chest tightness, negative for shortness of breath and wheezing. Negative for cough Cardiovascular: Negative for chest pain and positive for palpitations. Gastrointestinal: Negative for abdominal pain. Negative for abdominal distention , diarrhea, nausea and vomiting. Genitourinary: Negative for dysuria. Musculoskeletal: Negative for back pain, neck pain and neck stiffness. Skin: Negative for color change. Neurological: Negative for dizziness, speech difficulty, weakness and light- headedness. Psychiatric/Behavioral: Negative for agitation and confusion. Negative for anxiety ROS Other: All systems not noted in ROS Statement are negative. Past Medical History Past Medical History: Hyperlipidemia, Hypertension, Thyroid Disorder Additional Past Medical History / Comment(s): hyperthyroid, kidney stones History of Any Multi-Drug Resistant Organisms: None Reported Past Surgical History: No Surgical Hx Reported Past Psychological History: No Psychological Hx Reported Smoking Status: Never smoker Past Alcohol Use History: Occasional Past Drug Use History: None Reported - Past Family History Father Family Medical History: Hypertension Mother Family Medical History: Hypertension General Exam - General Exam Comments Initial Comments: Constitutional: Pt is oriented to person, place, and time. Pt appears well- developed and well-nourished. No distress. HENT: Head: Normocephalic and atraumatic. Eyes: EOM are normal. Neck: Normal range of motion. Neck supple. Cardiovascular: Normal rate, regular rhythm, S1 normal, S2 normal and normal heart sounds. Exam reveals no gallop and no friction rub. No murmur heard. Pulmonary/Chest: Effort normal and breath sounds normal. No tachypnea and no bradypnea. No respiratory distress. No wheezes or rales noted. Abdominal: Soft. Bowel sounds are normal. Pt exhibits no shifting dullness, no distension, no pulsatile liver, no fluid wave, no abdominal bruit and no ascites. There is no tenderness. There is no rigidity, no rebound, no guarding, no tenderness at McBurney's point and negative Arana's sign. Musculoskeletal: Normal range of motion. Neurological: Pt is alert and oriented to person, place, and time. No cranial nerve deficit. Skin: Skin is warm and dry. No rash noted. Pt is not diaphoretic. No erythema. No pallor. Psychiatric: Pt has a normal mood and affect. Pt behavior is normal. Thought content normal. Limitations: no limitations Course Vital Signs 04/30/18 04/30/18 04/30/18 21:48 22:30 23:00 Temperature 98 F Pulse Rate 77 62 73 Respiratory 16 13 22 Rate Blood Pressure 186/105 155/92 139/85 O2 Sat by Pulse 100 98 97 Oximetry 05/01/18 05/01/18 00:00 00:30 Temperature Pulse Rate 69 65 Respiratory 16 18 Rate Blood Pressure 131/78 129/80 O2 Sat by Pulse 96 97 Oximetry Medical Decision Making - Medical Decision Making Auditory studies showed that there was no significant leukocytosis and chest x- ray was negative for acute infiltrate or emergent pathology. EKG also had no emergent findings and troponin was negative. Because the patient had a recent stress echo which was negative, it was thought that the patient could be safely discharged. His also advised to the patient that he should follow up with cardiology and/or return to emergency Department if symptoms worsen. Additionally, he was advised to decrease the frequency of blood pressure checks. Patient was agreeable to plan. - Lab Data Result diagrams: 04/30/18 22:42 04/30/18 22:42 Lab Results 04/30/18 04/30/18 04/30/18 Range/Units 22:42 22:42 22:42 WBC 8.2 (3.8-10.6) k/uL RBC 4.78 (4.30-5.90) m/uL Hgb 14.3 (13.0-17.5) gm/dL Hct 42.3 (39.0-53.0) % MCV 88.5 (80.0-100.0) fL MCH 29.9 (25.0-35.0) pg MCHC 33.7 (31.0-37.0) g/dL RDW 13.4 (11.5-15.5) % Plt Count 217 (150-450) k/uL Neutrophils % 67 % Lymphocytes % 22 % Monocytes % 7 % Eosinophils % 2 % Basophils % 0 % Neutrophils # 5.5 (1.3-7.7) k/uL Lymphocytes # 1.8 (1.0-4.8) k/uL Monocytes # 0.5 (0-1.0) k/uL Eosinophils # 0.1 (0-0.7) k/uL Basophils # 0.0 (0-0.2) k/uL PT 9.8 (9.0-12.0) sec INR 0.9 (<1.2) APTT 26.7 (22.0-30.0) sec Sodium 142 (137-145) mmol/L Potassium 4.4 (3.5-5.1) mmol/L Chloride 104 (98-107) mmol/L Carbon Dioxide 27 (22-30) mmol/L Anion Gap 11 mmol/L BUN 10 (9-20) mg/dL Creatinine 0.94 (0.66-1.25) mg/dL Est GFR (CKD-EPI)AfAm >90 (>60 ml/min/1.73 sqM) Est GFR (CKD-EPI)NonAf >90 (>60 ml/min/1.73 sqM) Glucose 107 H (74-99) mg/dL Calcium 9.7 (8.4-10.2) mg/dL Magnesium 2.2 (1.6-2.3) mg/dL Total Bilirubin 0.7 (0.2-1.3) mg/dL AST 23 (17-59) U/L ALT 34 (21-72) U/L Alkaline Phosphatase 93 (38-126) U/L Troponin I (0.000-0.034) ng/mL Total Protein 7.7 (6.3-8.2) g/dL Albumin 4.6 (3.5-5.0) g/dL TSH (0.465-4.680) mIU/L 04/30/18 04/30/18 Range/Units 22:42 22:42 WBC (3.8-10.6) k/uL RBC (4.30-5.90) m/uL Hgb (13.0-17.5) gm/dL Hct (39.0-53.0) % MCV (80.0-100.0) fL MCH (25.0-35.0) pg MCHC (31.0-37.0) g/dL RDW (11.5-15.5) % Plt Count (150-450) k/uL Neutrophils % % Lymphocytes % % Monocytes % % Eosinophils % % Basophils % % Neutrophils # (1.3-7.7) k/uL Lymphocytes # (1.0-4.8) k/uL Monocytes # (0-1.0) k/uL Eosinophils # (0-0.7) k/uL Basophils # (0-0.2) k/uL PT (9.0-12.0) sec INR (<1.2) APTT (22.0-30.0) sec Sodium (137-145) mmol/L Potassium (3.5-5.1) mmol/L Chloride (98-107) mmol/L Carbon Dioxide (22-30) mmol/L Anion Gap mmol/L BUN (9-20) mg/dL Creatinine (0.66-1.25) mg/dL Est GFR (CKD-EPI)AfAm (>60 ml/min/1.73 sqM) Est GFR (CKD-EPI)NonAf (>60 ml/min/1.73 sqM) Glucose (74-99) mg/dL Calcium (8.4-10.2) mg/dL Magnesium (1.6-2.3) mg/dL Total Bilirubin (0.2-1.3) mg/dL AST (17-59) U/L ALT (21-72) U/L Alkaline Phosphatase (38-126) U/L Troponin I <0.012 (0.000-0.034) ng/mL Total Protein (6.3-8.2) g/dL Albumin (3.5-5.0) g/dL TSH 3.200 (0.465-4.680) mIU/L Disposition Clinical Impression: Palpitations, Hypertension Disposition: HOME SELF-CARE Condition: Good Is patient prescribed a controlled substance at d/c from ED?: No Referrals: Arash Flores MD [Primary Care Provider] - 1-2 days Enrique Askew MD [STAFF PHYSICIAN] - 1-2 days Time of Disposition: 01:10
[2018-04-30 23:24] LABS: Basophils % (A) 0 %; Eosinophils # (A) 0.1 k/uL (0-0.7); Eosinophils % (A) 2 %; HCT 42.3 % (39.0-53.0); HGB 14.3 gm/dL (13.0-17.5); Lymphocytes # (A) 1.8 k/uL (1.0-4.8); Lymphocytes % (A) 22 %; MCH 29.9 pg (25.0-35.0); MCHC 33.7 g/dL (31.0-37.0); MCV 88.5 fL (80.0-100.0); Mean Platelet Volume 7.4; Monocytes # (A) 0.5 k/uL (0-1.0); Monocytes % (A) 7 %; Neutrophils # (A) 5.5 k/uL (1.3-7.7); Neutrophils % (A) 67 %; Platelet Count 217 k/uL (150-450); RBC 4.78 m/uL (4.30-5.90); RDW 13.4 % (11.5-15.5); WBC 8.2 k/uL (3.8-10.6)
[2018-04-30 23:32] LABS: INR 0.9 (<1.2); Partial Thromboplastin Time 26.7 sec (22.0-30.0); Prothrombin Time 9.8 sec (9.0-12.0)
[2018-04-30 23:35] LABS: ALT 34 U/L (21-72); AST 23 U/L (17-59); Albumin 4.6 g/dL (3.5-5.0); Alkaline Phosphatase 93 U/L (38-126); Anion Gap 11 mmol/L; Blood Urea Nitrogen 10 mg/dL (9-20); Calcium 9.7 mg/dL (8.4-10.2); Carbon Dioxide 27 mmol/L (22-30); Chloride 104 mmol/L (98-107); Glucose 107 mg/dL (74-99); Magnesium 2.2 mg/dL (1.6-2.3); Potassium 4.4 mmol/L (3.5-5.1); Sodium 142 mmol/L (137-145); Total Bilirubin 0.7 mg/dL (0.2-1.3); Total Protein 7.7 g/dL (6.3-8.2)
--- NOTE | 2018-04-30 23:48 | XR ---
EXAMINATION TYPE: XR chest 2V DATE OF EXAM: 04/30/2018 COMPARISON: 04/26/2018 HISTORY: Chest pain TECHNIQUE: Frontal and lateral views of the chest are obtained. FINDINGS: Heart and mediastinum appear normal. Lungs are clear. There are chest leads. Diaphragm is normal. Bony thorax appears normal. IMPRESSION: Normal chest. No change.
[2018-05-01 01:24] VITALS: BP 157/95; PULSE 66; RESP 16; TEMP 97.7
== END 2018-05-01 01:22 | disposition home or self-care (01) ==
LOC: EC 21:47
DX: I10 Essential (primary) hypertension (principal); R00.2 Palpitations; R07.89 Other chest pain; E05.90 Thyrotoxicosis, unspecified without thyrotoxic crisis or storm; Z88.1 Allergy status to other antibiotic agents; Z88.8 Allergy status to other drugs, medicaments and biological substances; Z91.040 Latex allergy status; Z79.82 Long term (current) use of aspirin; Z79.899 Other long term (current) drug therapy; Z82.49 Family history of ischemic heart disease and other diseases of the circulatory system
CPT/HCPCS: 36415; 71046; 80053; 83735; 84443; 84484; 85025; 85610; 85730; 93005; 99283

== ENCOUNTER → 2018-05-10 | Outpatient (CLI) | payer BC ==
--- NOTE | 2018-05-10 13:17 | US ---
EXAMINATION TYPE: US thyroid st tissue head/neck DATE OF EXAM: 05/10/2018 COMPARISON: 12/22/2016 CLINICAL HISTORY: 37-year-old male E04.9 NONTOXIC GOITER. TECHNIQUE: Multiple sonographic images of the thyroid gland are obtained. FINDINGS: GLAND SIZE: Right Lobe: 6.1 x 2.1 x 2.9 cm Overall Parenchyma: slightly heterogeneous Left Lobe: 6.6 x 2.1 x 2.6 cm Overall Parenchyma: slightly heterogeneous Isthmus Thickness: 0.7 cm NODULES RIGHT: # of nodules measured on right: 2 1. 0.7 X 0.5 x 0.7 cm hypoechoic mixed nodule at the mid pole with well-defined margins; . This no dule is wider than tall and shows no intranodular vascularity. Prior size: 7 x 4 x 6 mm 2. 0.5 X 0.3 x 0.4 cm hypoechoic solid nodule at the mid pole with poorly defined margins; . This n odule is wider than tall and shows intranodular vascularity. Prior size: 0.5 x 0.4 x 0.5 cm LEFT: # of nodules measured on left: 1 1. 1.7 X 1.4 x 1.6 cm complex, primarily solid nodule at the lower pole with well-defined margins; . This nodule is wider than tall and shows intranodular vascularity. Prior size: 1.5 x 1.3 x 1.4 cm ISTHMUS: # of nodules measured in the isthmus: 0 Bilateral neck scanned, no evidence of lymphadenopathy. IMPRESSION: 1. Thyromegaly, likely multinodular goiter. 2. Dominant nodule at the left lower pole is primarily solid and measures 1.7 cm, a couple millimeter s larger now. Continued follow-up versus FNA. 3. 2 additional nodules on the right have fluctuated by a millimeter each, not significantly changed.
== END | disposition home or self-care (01) ==
LOC: RADUSWWP 12:17
PROVIDERS: ATTEND Family Medicine
DX: E04.2 Nontoxic multinodular goiter (principal)
CPT/HCPCS: 76536

== ENCOUNTER 2019-02-14 11:11 | Emergency (ER) | payer BC ==
[2019-02-14 11:27] VITALS: RESP 18
[2019-02-14] MEDS ORDERED: LABETALOL 5 MG/ML VIAL MDV IVP STA (12:25)
[2019-02-14] MEDS ORDERED: SODIUM CHLORIDE 0.9% 1,000 ML IV STA (12:25)
[2019-02-14] MEDS ORDERED: LOSARTAN 50 MG TAB PO STA (12:41)
[2019-02-14] MEDS ORDERED: amLODIPine 5 MG TAB PO STA (12:41)
--- NOTE | 2019-02-14 12:56 | ED ---
Recheck HPI - General Chief Complaint: Recheck/Abnormal Lab/Rx Stated Complaint: High BP Time Seen by Provider: 02/14/19 11:34 Source: patient, RN notes reviewed, old records reviewed Mode of arrival: ambulatory Limitations: no limitations - History of Present Illness Initial Comments: This is a 38-year-old male the ER for evaluation patient presents today for evaluation regards to other blood pressure. Patient's issues are what he believes is related to tolerate issues. Patient having difficulty with his thyroid medication topical course of the summer in the inferior out why he has hyperthyroid. He does take antithyroid medications will blood pressure medication blood pressure is been running high as well as nonspecific symptoms of some chest pain and tightness left-sided facial numbness and hand tingling. Patient does check his blood pressure at home and is recently been running high, he states recheck he does check his blood pressure every feels similar symptoms MD Complaint: other (Abnormal blood pressure recheck) -: unknown Returns Today for: other (Nonspecific symptoms numbness tingling paresthesias) Context: other (Patient checked home blood pressure was elevated) Associated Symptoms: chest pain (Mild) Treatments Prior to Arrival: other medications - Related Data Home Medications Medication Instructions Recorded Confirmed Losartan Potassium 100 mg PO W/LUNCH 07/06/16 02/14/19 Methimazole 10 mg PO DAILY 07/06/16 02/14/19 Aspirin [[place] Aspirin EC] 81 mg PO DAILY 04/26/18 02/14/19 amLODIPine BESYLATE [Norvasc] 2.5 mg PO W/LUNCH 04/26/18 02/14/19 Carvedilol [Coreg] 6.25 mg PO BID 02/14/19 02/14/19 Carvedilol [Coreg] 25 mg PO BID 02/14/19 02/14/19 Ibuprofen 200 mg PO Q6H PRN 02/14/19 02/14/19 Allergies Allergy/AdvReac Type Severity Reaction Status Date / Time erythromycin base Allergy Rash/Hives Verified 02/14/19 12:09 hydrochlorothiazide Allergy Unknown Verified 02/14/19 12:09 latex Allergy Rash/Hives Verified 02/14/19 12:09 Review of Systems ROS Statement: Those systems with pertinent positive or pertinent negative responses have been documented in the HPI. ROS Other: All systems not noted in ROS Statement are negative. Past Medical History Past Medical History: Hyperlipidemia, Hypertension, Thyroid Disorder Additional Past Medical History / Comment(s): hyperthyroid, kidney stones History of Any Multi-Drug Resistant Organisms: None Reported Past Surgical History: No Surgical Hx Reported Past Psychological History: No Psychological Hx Reported Smoking Status: Never smoker Past Alcohol Use History: Occasional Past Drug Use History: None Reported - Past Family History Father Family Medical History: Hypertension Mother Family Medical History: Hypertension General Exam Limitations: no limitations General appearance: alert, in no apparent distress Head exam: Present: atraumatic, normocephalic, normal inspection Eye exam: Present: normal appearance, EOMI. Absent: scleral icterus, conjunctival injection, periorbital swelling ENT exam: Present: normal exam, mucous membranes moist Neck exam: Present: normal inspection. Absent: tenderness, meningismus, lymphadenopathy Respiratory exam: Present: normal lung sounds bilaterally. Absent: respiratory distress, wheezes, rales, rhonchi, stridor Cardiovascular Exam: Present: regular rate, normal rhythm, normal heart sounds. Absent: systolic murmur, diastolic murmur, rubs, gallop, clicks GI/Abdominal exam: Present: soft, normal bowel sounds. Absent: distended, tenderness, guarding, rebound, rigid Extremities exam: Present: normal inspection, full ROM, normal capillary refill. Absent: tenderness, pedal edema, joint swelling, calf tenderness Back exam: Present: normal inspection Neurological exam: Present: alert, oriented X3, CN II-XII intact Psychiatric exam: Present: normal affect, normal mood Skin exam: Present: warm, dry, intact, normal color. Absent: rash Course Vital Signs 02/14/19 02/14/19 02/14/19 11:23 12:12 13:13 Temperature 97.8 F Pulse Rate 91 82 69 Respiratory 18 18 18 Rate Blood Pressure 150/92 143/93 143/82 O2 Sat by Pulse 99 98 97 Oximetry - Reevaluation(s) Reevaluation #1: 02/14/19 12:56 Medical records reviewed Reevaluation #2: 02/14/19 14:21 Blood pressure improved here in ER with patient's home medication Medical Decision Making - Medical Decision Making 38 male the ER for evaluation of hypertension, blood pressure control here in the ER with home medications. Patient encouraged to follow-up with endocrinology regarding hyperthyroidism. Patient can be discharged home EKG troponin labwork is normal. Blood pressures improved. - Lab Data Result diagrams: 02/14/19 13:00 02/14/19 13:00 Lab Results 02/14/19 02/14/19 02/14/19 Range/Units 13:00 13:00 13:00 WBC 5.8 (3.8-10.6) k/uL RBC 4.93 (4.30-5.90) m/uL Hgb 14.7 (13.0-17.5) gm/dL Hct 43.1 (39.0-53.0) % MCV 87.5 (80.0-100.0) fL MCH 29.8 (25.0-35.0) pg MCHC 34.0 (31.0-37.0) g/dL RDW 13.0 (11.5-15.5) % Plt Count 256 (150-450) k/uL Neutrophils % 64 % Lymphocytes % 26 % Monocytes % 6 % Eosinophils % 1 % Basophils % 1 % Neutrophils # 3.7 (1.3-7.7) k/uL Lymphocytes # 1.5 (1.0-4.8) k/uL Monocytes # 0.3 (0-1.0) k/uL Eosinophils # 0.1 (0-0.7) k/uL Basophils # 0.1 (0-0.2) k/uL PT (9.0-12.0) sec INR (<1.2) APTT (22.0-30.0) sec Sodium 142 (137-145) mmol/L Potassium 4.4 (3.5-5.1) mmol/L Chloride 103 (98-107) mmol/L Carbon Dioxide 27 (22-30) mmol/L Anion Gap 12 mmol/L BUN 10 (9-20) mg/dL Creatinine 0.84 (0.66-1.25) mg/dL Est GFR (CKD-EPI)AfAm >90 (>60 ml/min/1.73 sqM) Est GFR (CKD-EPI)NonAf >90 (>60 ml/min/1.73 sqM) Glucose 106 H (74-99) mg/dL Plasma Lactic Acid Eloy 1.5 (0.7-2.0) mmol/L Calcium 10.2 (8.4-10.2) mg/dL Phosphorus 2.7 (2.5-4.5) mg/dL Magnesium 2.3 (1.6-2.3) mg/dL Total Bilirubin 1.1 (0.2-1.3) mg/dL AST 20 (17-59) U/L ALT 21 (21-72) U/L Alkaline Phosphatase 99 (38-126) U/L Creatine Kinase 45 L (55-170) U/L Troponin I (0.000-0.034) ng/mL Total Protein 8.2 (6.3-8.2) g/dL Albumin 4.9 (3.5-5.0) g/dL TSH 0.061 L (0.465-4.680) mIU/L Free T3 pg/mL 4.4 (2.8-5.3) pg/ml Urine Color Urine Appearance (Clear) Urine pH (5.0-8.0) Ur Specific [place] (1.001-1.035) Urine Protein (Negative) Urine Glucose (UA) (Negative) Urine Ketones (Negative) Urine Blood (Negative) Urine Nitrite (Negative) Urine Bilirubin (Negative) Urine Urobilinogen (<2.0) mg/dL Ur Leukocyte Esterase (Negative) 02/14/19 02/14/19 02/14/19 Range/Units 13:00 13:00 13:15 WBC (3.8-10.6) k/uL RBC (4.30-5.90) m/uL Hgb (13.0-17.5) gm/dL Hct (39.0-53.0) % MCV (80.0-100.0) fL MCH (25.0-35.0) pg MCHC (31.0-37.0) g/dL RDW (11.5-15.5) % Plt Count (150-450) k/uL Neutrophils % % Lymphocytes % % Monocytes % % Eosinophils % % Basophils % % Neutrophils # (1.3-7.7) k/uL Lymphocytes # (1.0-4.8) k/uL Monocytes # (0-1.0) k/uL Eosinophils # (0-0.7) k/uL Basophils # (0-0.2) k/uL PT 10.0 (9.0-12.0) sec INR 0.9 (<1.2) APTT 29.4 (22.0-30.0) sec Sodium (137-145) mmol/L Potassium (3.5-5.1) mmol/L Chloride (98-107) mmol/L Carbon Dioxide (22-30) mmol/L Anion Gap mmol/L BUN (9-20) mg/dL Creatinine (0.66-1.25) mg/dL Est GFR (CKD-EPI)AfAm (>60 ml/min/1.73 sqM) Est GFR (CKD-EPI)NonAf (>60 ml/min/1.73 sqM) Glucose (74-99) mg/dL Plasma Lactic Acid Eloy (0.7-2.0) mmol/L Calcium (8.4-10.2) mg/dL Phosphorus (2.5-4.5) mg/dL Magnesium (1.6-2.3) mg/dL Total Bilirubin (0.2-1.3) mg/dL AST (17-59) U/L ALT (21-72) U/L Alkaline Phosphatase (38-126) U/L Creatine Kinase (55-170) U/L Troponin I <0.012 (0.000-0.034) ng/mL Total Protein (6.3-8.2) g/dL Albumin (3.5-5.0) g/dL TSH (0.465-4.680) mIU/L Free T3 pg/mL (2.8-5.3) pg/ml Urine Color Colorless Urine Appearance Clear (Clear) Urine pH 7.5 (5.0-8.0) Ur Specific [place] 1.002 (1.001-1.035) Urine Protein Negative (Negative) Urine Glucose (UA) Negative (Negative) Urine Ketones Negative (Negative) Urine Blood Negative (Negative) Urine Nitrite Negative (Negative) Urine Bilirubin Negative (Negative) Urine Urobilinogen <2.0 (<2.0) mg/dL Ur Leukocyte Esterase Negative (Negative) - EKG Data -: EKG Interpreted by Me (EKG shows sinus rhythm rate of 68 OK 140 QRS 70 QTC 423) Disposition Clinical Impression: Hypertension, Paresthesia, Hyperthyroidism Disposition: HOME SELF-CARE Condition: Good Instructions (If sedation given, give patient instructions): Hypertension (ED) Is patient prescribed a controlled substance at d/c from ED?: No Referrals: Arash Flores MD [Primary Care Provider] - 1-2 days
[2019-02-14 13:16] LABS: Basophils # (A) 0.1 k/uL (0-0.2); Basophils % (A) 1 %; Eosinophils # (A) 0.1 k/uL (0-0.7); Eosinophils % (A) 1 %; HCT 43.1 % (39.0-53.0); HGB 14.7 gm/dL (13.0-17.5); Lymphocytes # (A) 1.5 k/uL (1.0-4.8); Lymphocytes % (A) 26 %; MCH 29.8 pg (25.0-35.0); MCV 87.5 fL (80.0-100.0); Monocytes # (A) 0.3 k/uL (0-1.0); Monocytes % (A) 6 %; Neutrophils # (A) 3.7 k/uL (1.3-7.7); Neutrophils % (A) 64 %; Platelet Count 256 k/uL (150-450); RBC 4.93 m/uL (4.30-5.90); WBC 5.8 k/uL (3.8-10.6)
[2019-02-14 13:21] LABS: ALT 21 U/L (21-72); AST 20 U/L (17-59); African American GFR (CKD) >90 (>60 ml/min/1.73 sqM); Albumin 4.9 g/dL (3.5-5.0); Alkaline Phosphatase 99 U/L (38-126); Anion Gap 12 mmol/L; Blood Urea Nitrogen 10 mg/dL (9-20); Calcium 10.2 mg/dL (8.4-10.2); Carbon Dioxide 27 mmol/L (22-30); Chloride 103 mmol/L (98-107); Creatine Kinase 45 U/L (55-170); Glucose 106 mg/dL (74-99); Magnesium 2.3 mg/dL (1.6-2.3); Phosphorus 2.7 mg/dL (2.5-4.5); Potassium 4.4 mmol/L (3.5-5.1); Sodium 142 mmol/L (137-145); Total Bilirubin 1.1 mg/dL (0.2-1.3); Total Protein 8.2 g/dL (6.3-8.2)
[2019-02-14 13:30] LABS: INR 0.9 (<1.2); Partial Thromboplastin Time 29.4 sec (22.0-30.0)
[2019-02-14 13:33] LABS: Appearance,Urine Clear (Clear); Bilirubin,Urine Negative (Negative); Blood,Urine Negative (Negative); Color,Urine Colorless; Glucose,Urine (UA) Negative (Negative); Ketones,Urine Negative (Negative); Leukocyte Esterase,Urine Negative (Negative); Nitrite,Urine Negative (Negative); PH, Urine 7.5 (5.0-8.0); Protein,Urine Negative (Negative); Specific Gravity,Urine 1.002 (1.001-1.035); Urobilinogen,Urine <2.0 mg/dL (<2.0)
[2019-02-14 14:43] LABS: T4, Free (Free Thyroxine) 1.47 ng/dL (0.78-2.19)
[2019-02-14 15:04] VITALS: BP 135/81; PULSE 66; TEMP 97.9
== END 2019-02-14 15:13 | disposition home or self-care (01) ==
LOC: EC 11:11
DX: I10 Essential (primary) hypertension (principal); E05.90 Thyrotoxicosis, unspecified without thyrotoxic crisis or storm; R20.2 Paresthesia of skin; R07.89 Other chest pain; R20.0 Anesthesia of skin; Z88.1 Allergy status to other antibiotic agents; Z88.8 Allergy status to other drugs, medicaments and biological substances; Z91.040 Latex allergy status; Z79.82 Long term (current) use of aspirin; Z79.899 Other long term (current) drug therapy; Z82.49 Family history of ischemic heart disease and other diseases of the circulatory system; Z53.8 Procedure and treatment not carried out for other reasons
CPT/HCPCS: 36415; 80053; 81003; 82550; 83605; 83735; 84100; 84439; 84443; 84481; 84484; 85025; 85610; 85730; 93005; 96360; 96361; 99284

== ENCOUNTER → 2019-06-20 | Outpatient (CLI) | payer BC ==
--- NOTE | 2019-06-20 08:32 | US ---
EXAMINATION TYPE: US abdomen complete DATE OF EXAM: 06/20/2019 COMPARISON: US 2018, CT 2017 CLINICAL HISTORY: R10.9 Abdominal pain. Intermittent RUQ pain x 1 week EXAM MEASUREMENTS: Liver Length: 15.4 cm Gallbladder Wall: 0.1 cm CBD: 0.3 cm Spleen: 9.1 cm Right Kidney: 11.2 x 5.1 x 5.0 cm Left Kidney: 10.4 x 6.0 x 4.2 cm Pancreas: visualized portions wnl, tail limited by overlying midline bowel gas Liver: wnl Gallbladder: wnl Evidence for sonographic Arana's sign: no CBD: visualized portions wnl, limited by overlying bowel gas Spleen: visualized portions wnl, limited by overlying bowel gas Right Kidney: 0.4cm echogenic focus mid pole Left Kidney: wnl Upper IVC: wnl Abd Aorta: wnl The liver is homogenous. The intrahepatic portion of the IVC and proximal abdominal aorta are within normal limits. There is no evidence of cholelithiasis. Common bile duct is unremarkable. The visu alized portions of the pancreas are homogenous. The spleen is unremarkable. Kidneys are symmetric a nd free of hydronephrosis. No renal lesions are seen. IMPRESSION: 1. 4 mm nonobstructing right renal calculus. No hydronephrosis of either kidney. 2. No sonographic evidence of cholelithiasis nor acute cholecystitis. 3. Somewhat limited visualization of the pancreas, common bile duct and spleen by overlying bowel gas .
== END | disposition home or self-care (01) ==
LOC: RADUSWWP 07:09
PROVIDERS: ATTEND Family Medicine
DX: N20.0 Calculus of kidney (principal)
CPT/HCPCS: 76700

== ENCOUNTER → 2019-12-11 | Outpatient (CLI) | payer BC ==
--- NOTE | 2019-12-11 19:33 | US ---
EXAMINATION TYPE: US kidneys/renal and bladder DATE OF EXAM: 12/11/2019 COMPARISON: CT 07/06/2016, US 06/20/2019 CLINICAL HISTORY: N20.0 Calculus of kidney. EXAM MEASUREMENTS: Right Kidney: 11.4 x 5.7 x 4.5 cm Left Kidney: 11.6 x 6.0 x 4.9 cm Right Kidney: No hydronephrosis or masses seen Echogenic foci visualized measuring 0.5 cm Left Kidney: No hydronephrosis or masses seen. Echogenic foci visualized measuring 0.4 cm Bladder: wnl Bilateral Jets seen: Yes IMPRESSION: 1. Bilateral nonobstructing renal stones
== END | disposition home or self-care (01) ==
LOC: RADUSWWP 16:25
PROVIDERS: ATTEND Family Medicine
DX: N20.0 Calculus of kidney (principal)
CPT/HCPCS: 76770

== ENCOUNTER → 2019-12-14 | Outpatient (CLI) | payer BC | END | disposition home or self-care (01) | LOC: LABWHC1 14:18 | PROVIDERS: ATTEND Internal Medicine Clinical Cardiac Electrophysiology | DX: I10 Essential (primary) hypertension (principal) | CPT/HCPCS: 36415; 82088; 82533; 84244 ==

== ENCOUNTER → 2019-12-18 | Outpatient (CLI) | payer BC ==
--- NOTE | 2019-12-18 08:50 | XR ---
EXAMINATION TYPE: XR KUB DATE OF EXAM: 12/18/2019 COMPARISON: 06/28/2016 HISTORY: Right flank pain TECHNIQUE: One view abdominal series FINDINGS: The osseous structures are intact. The bowel gas pattern is nonspecific. There are approximately 5 c alcifications all measuring less than 5 mm overlying each kidney. Calcifications in the pelvis or non specific. Osseous structures intact. IMPRESSION: 1. Bilateral nephrolithiasis. No definite calcification is seen to be suspicious within the ureter.
== END | disposition home or self-care (01) ==
LOC: RADXRMAIN 08:33
PROVIDERS: ATTEND Urology
DX: N20.0 Calculus of kidney (principal)
CPT/HCPCS: 74018

== ENCOUNTER → 2019-12-20 | Outpatient (CLI) | payer BC ==
[2019-12-20 14:54] LABS: Basophils % (A) 1 %; Eosinophils # (A) 0.1 k/uL (0-0.7); Eosinophils % (A) 2 %; HCT 42.8 % (39.0-53.0); HGB 13.3 gm/dL (13.0-17.5); Lymphocytes # (A) 1.9 k/uL (1.0-4.8); Lymphocytes % (A) 25 %; MCH 27.9 pg (25.0-35.0); MCV 90.2 fL (80.0-100.0); Mean Platelet Volume 7.3; Monocytes # (A) 0.4 k/uL (0-1.0); Monocytes % (A) 6 %; Neutrophils # (A) 4.9 k/uL (1.3-7.7); Neutrophils % (A) 65 %; Platelet Count 248 k/uL (150-450); RBC 4.75 m/uL (4.30-5.90); RDW 13.8 % (11.5-15.5); WBC 7.6 k/uL (3.8-10.6)
[2019-12-20 14:56] LABS: Appearance,Urine Cloudy (Clear); Bacteria,Urine Rare /hpf; Bilirubin,Urine Negative (Negative); Blood,Urine Negative (Negative); Color,Urine Yellow; Glucose,Urine (UA) Negative (Negative); Hyaline Casts,Urine 8 /lpf (0-2); Ketones,Urine Negative (Negative); Leukocyte Esterase,Urine Negative (Negative); Mucus,Urine Moderate /hpf; Nitrite,Urine Negative (Negative); PH, Urine 5.5 (5.0-8.0); Protein,Urine 1+ (Negative); RBC,Urine 1 /hpf (0-5); Specific Gravity,Urine 1.017 (1.001-1.035); Sperm,Urine Occasional /hpf; Urobilinogen,Urine <2.0 mg/dL (<2.0); WBC,Urine 1 /hpf (0-5)
[2019-12-20 15:08] LABS: African American GFR (CKD) >90 (>60 ml/min/1.73 sqM); Anion Gap 10 mmol/L; Blood Urea Nitrogen 12 mg/dL (9-20); Carbon Dioxide 30 mmol/L (22-30); Chloride 101 mmol/L (98-107); Non-African American GFR(CKD) >90 (>60 ml/min/1.73 sqM); Sodium 141 mmol/L (137-145)
== END | disposition home or self-care (01) ==
LOC: LABPAT 14:22
PROVIDERS: ATTEND Urology
DX: Z01.818 Encounter for other preprocedural examination (principal); N20.0 Calculus of kidney; R31.29 Other microscopic hematuria
CPT/HCPCS: 80051; 81001; 82565; 84520; 85025

== ENCOUNTER 2019-12-24 07:10 | Day surgery (SDC) | payer BC ==
[2019-12-20 15:49] VITALS: BMI 29.0
--- NOTE | 2019-12-23 17:43 | P.GSHP ---
History of Present Illness H&P Date: 12/23/19 39 yo male with right flank pain and three small stones comes for eswl right He also has two small stones on the left that are asx. - Constitutional Constitutional: Denies chills, Denies fever - EENT Eyes: denies blurred vision, denies pain Ears, nose, mouth and throat: Denies headache, Denies sore throat - Cardiovascular Cardiovascular: Denies chest pain, Denies shortness of breath - Respiratory Respiratory: Denies cough, Denies 7 - Gastrointestinal Gastrointestinal: Denies abdominal pain, Denies diarrhea, Denies nausea, Denies vomiting - Genitourinary (Female) Genitourinary: Denies dysuria, Denies hematuria - Genitourinary (Male) Genitourinary: Denies dysuria, Denies hematuria - Musculoskeletal Musculoskeletal: Denies myalgias - Integumentary Integumentary: Denies pruritus, Denies rash - Neurological Neurological: Denies numbness, Denies weakness - Psychiatric Psychiatric: Denies anxiety, Denies depression - Endocrine Endocrine: Denies fatigue, Denies weight change Past Medical History Past Medical History: Hyperlipidemia, Hypertension, Thyroid Disorder Additional Past Medical History / Comment(s): kidney stones History of Any Multi-Drug Resistant Organisms: None Reported Past Surgical History: No Surgical Hx Reported Additional Past Surgical History / Comment(s): total thyroidectomy Past Anesthesia/Blood Transfusion Reactions: No Reported Reaction Smoking Status: Never smoker - Past Family History Father Family Medical History: Hypertension Mother Family Medical History: Hypertension Medications and Allergies Home Medications Medication Instructions Recorded Confirmed Type amLODIPine BESYLATE [Norvasc] 2.5 mg PO QAM 04/26/18 12/20/19 History Ibuprofen 200 mg PO Q6H PRN 02/14/19 12/20/19 History carvediloL [Coreg] 31.25 mg PO BID 02/14/19 12/20/19 History Levothyroxine Sodium [Synthroid] 112 mcg PO DAILY 12/20/19 12/20/19 History amLODIPine [Norvasc] 5 mg PO HS 12/20/19 12/20/19 History Allergies Allergy/AdvReac Type Severity Reaction Status Date / Time erythromycin base Allergy Rash/Hives Verified 12/20/19 14:51 hydrochlorothiazide Allergy severe Verified 12/20/19 14:51 dehydration latex Allergy Rash/Hives Verified 12/20/19 14:51 Surgical - Exam - General well developed, well nourished, no distress - Eyes PERRL - ENT no hearing loss - Neck trachea midline - Respiratory normal expansion, normal respiratory effort - Cardiovascular Rhythm: regular - Abdomen Abdomen: soft, non tender - Genitourinary normal penis with no external lesions, testicles present - Integumentary no rash, no growths - Neurologic normal coordination, normal sensation - Musculoskeletal normal gait, normal posture - Psychiatric oriented to time, oriented to person, oriented to place, speech is normal, memory intact Results - Imaging Abdominal x-ray: report reviewed, image reviewed CT scan - abdomen: report reviewed, image reviewed CT scan - pelvis: report reviewed, image reviewed Assessment and Plan Assessment: Impression: Symptomatic right renal stones Plan: ESWL right
[~2019-12-24 07:10] MED LIST: LACTATED RINGERS 1,000 ML IV SCH
[2019-12-24 07:38] VITALS: TEMP 96.8
--- NOTE | 2019-12-24 07:48 | XR ---
EXAMINATION TYPE: XR KUB DATE OF EXAM: 12/24/2019 Comparison: 12/18/2019 Clinical History: 39-year-old male preoperative for right kidney stones Findings: Mild overall stool burden. Bowel content partially obscures the right renal shadow. There is a 4 mm d ensity in the left midabdomen. Phleboliths in the pelvis. Nonobstructive bowel gas pattern. Impression: 4 mm left renal calculus. Bowel content largely obscures the right renal shadow.
[2019-12-24] MEDS ORDERED: MIDAZOLAM 2 MG/2 ML VIAL ONE (08:25)
[2019-12-24] MEDS ORDERED: PROPOFOL 10 MG/ML 20 ML VIAL IV ONE (08:25)
[2019-12-24] MEDS ORDERED: fentaNYL (PF) 50 MCG/ML 2 ML AMP ONE (08:25)
--- NOTE | 2019-12-24 08:58 | P.OP ---
Date of Procedure: 12/24/19 Preoperative Diagnosis: Right renal calculi Postoperative Diagnosis: Same Procedure(s) Performed: Extracorporeal shockwave lithotripsy, 1500 shocks at energy level IV Anesthesia: MAC Surgeon: Pb Reveles Estimated Blood Loss (ml): 0 Pathology: none sent Condition: stable Disposition: PACU Indications for Procedure: The patient is 39. He's had pain in his right flank. He has 3-5 mm stones one in an upper pole, middle pole, lower pole. The patient comes for shockwave lithotripsy Description of Procedure: The patient is brought to the operating suite. He's placed on the lithotripsy table supine position. He is given IV sedation. The lower pole was seen in 2 views of fluoroscopy. 500 shocks at energy level IV administered. The stone fractures nicely. Due to the middle pole stone and given another 500 shocks and it fractures. I remove the upper pole fracture the last stone using 500 shocks at energy level IV. At the end of the procedure the patient's awakened and returned recovery in good condition. He'll be discharged home upon recovery and found the office in one week.
[2019-12-24 09:46] VITALS: BP 121/71; PULSE 79; RESP 17
== END 2019-12-24 10:04 | disposition home or self-care (01) ==
LOC: ORWHC2ENDO 07:10
PROVIDERS: ATTEND Urology
DX: N20.0 Calculus of kidney (principal); I10 Essential (primary) hypertension; E89.0 Postprocedural hypothyroidism; E78.5 Hyperlipidemia, unspecified; K21.9 Gastro-esophageal reflux disease without esophagitis; Z88.1 Allergy status to other antibiotic agents; Z88.8 Allergy status to other drugs, medicaments and biological substances; Z91.040 Latex allergy status; Z79.02 Long term (current) use of antithrombotics/antiplatelets; Z79.890 Hormone replacement therapy; Z79.899 Other long term (current) drug therapy; Z82.49 Family history of ischemic heart disease and other diseases of the circulatory system
CPT/HCPCS: 74018; 50590; J2250; J3010; J2704

== ENCOUNTER → 2019-12-25 | Outpatient (CLI) | payer BC ==
--- NOTE | 2019-12-25 10:34 | US ---
EXAMINATION TYPE: US renal artery duplex complete DATE OF EXAM: 12/25/2019 COMPARISON: CT 2017. Most recent renal ultrasound December 11, 2019 CLINICAL HISTORY: I65.29 renal artery stenosis. HTN for 17 years, recently uncontrolled. MEASUREMENTS: RENAL SIZE: Rt Kidney: 11.3 x 5.6 x 5.4 cm Lt Kidney: 11.9 x 6.2 x 5.9 cm RESISTANCE INDEX Right: 0.68 Left: 0.66 RA/AO RATIO (< 3.5 ) Right: 1.5 Left: 1.4 RA VELOCITY ( < 180 cm/s) Right: 142 Left: 134 Renals and aorta unremarkable. Good upstroke on segmentals at renal hilum. Low resistive waveforms no xavi throughout. No ultrasound evidence for renal artery stenosis. Aorta visualized in its entirety to bifurcation without aneurysm. Renal arteries successfully visuali zed bilaterally without abnormal elevated velocity or suspicious increased resistive index. Renal siz es are symmetric and remain within normal limits. IMPRESSION: No ultrasound evidence for new suspicious focal renal artery stenosis.
== END | disposition home or self-care (01) ==
LOC: RADUSWWP 08:01
PROVIDERS: ATTEND Internal Medicine Clinical Cardiac Electrophysiology
DX: I70.1 Atherosclerosis of renal artery (principal)
CPT/HCPCS: 93975

== ENCOUNTER → 2019-12-31 | Outpatient (CLI) | payer BC ==
--- NOTE | 2019-12-31 17:43 | XR ---
EXAMINATION TYPE: XR KUB DATE OF EXAM: 12/31/2019 Comparison: 12/24/2019 Clinical History: 39-year-old male N20.0 Renal Calculus Findings: Lung bases are clear. Supine imaging limited for assessment of free air. Moderate stool right side of the abdomen. Phleboliths in the pelvis. No definite suspicious calcification is radiographically apparent. Impression: Nonobstructive bowel gas pattern. Phleboliths in the pelvis. Moderate stool in the right side of the abdomen.
== END | disposition home or self-care (01) ==
LOC: RADXRMAIN 13:46
PROVIDERS: ATTEND Urology
DX: N20.0 Calculus of kidney (principal); Z98.890 Other specified postprocedural states
CPT/HCPCS: 74018

== ENCOUNTER → 2020-01-30 | Outpatient (CLI) | payer BC ==
--- NOTE | 2020-01-30 08:43 | XR ---
EXAMINATION TYPE: XR KUB DATE OF EXAM: 01/30/2020 HISTORY: Pain Comparison: 12/31/2019Single KUB is submitted for interpretation. Findings: Right renal calculi: Several small right-sided renal calculi measuring up to 3 mm. Right ureteral calculi: None Visualized. Left renal calculi: Left sided renal calculi measuring up to 4.6 mm. Left ureteral calculi: Calculus within the left hemipelvis measuring 3.8 mm may reflect a distal lef t ureteral calculus. 2 adjacent phleboliths are seen. Bowel gas pattern is unremarkable. No free air. No mass effects. IMPRESSION: 1. Bilateral renal calculi. 2.Calculus within the left hemipelvis measuring 3.8 mm may reflect a distal left ureteral calculus. 2 adjacent phleboliths are seen.
== END | disposition home or self-care (01) ==
LOC: RADXRMAIN 08:15
PROVIDERS: ATTEND Urology
DX: N20.2 Calculus of kidney with calculus of ureter (principal); I87.8 Other specified disorders of veins
CPT/HCPCS: 74018

== ENCOUNTER → 2020-02-18 | Outpatient (CLI) | payer BC | END | disposition home or self-care (01) | LOC: LABWHC1 16:13 | PROVIDERS: ATTEND Internal Medicine Clinical Cardiac Electrophysiology | DX: I15.9 Secondary hypertension, unspecified (principal) | CPT/HCPCS: 36415; 82088; 83835; 84244 ==

== ENCOUNTER → 2020-03-12 | Outpatient (CLI) | payer BC | END | disposition home or self-care (01) | LOC: LABWHC1 09:38 | PROVIDERS: ATTEND Family Medicine | DX: R94.4 Abnormal results of kidney function studies (principal) | CPT/HCPCS: 36415; 82088; 84244 ==